=== PATIENT | female | born 1940 | race Caucasian/White ===

== ENCOUNTER 2017-02-12 11:15 | Outpatient (CLI) | payer MEDICARE, MEDICAID ==
--- NOTE | 2017-02-12 21:48 | Diagnostic Imaging Report ---
Indication: Cough Comparison: None 2 views of the chest obtained. No definite infiltrate or pulmonary vascular congestion identified. The heart is enlarged. The aorta is mildly enlarged consistent with atherosclerotic vascular disease. There is an old fracture of the left humeral neck. The bones are osteopenic. Impression: No acute disease
== END 2017-02-12 13:15 | disposition home or self-care (01) ==
LOC: RAD 11:15
DX: R05 Cough (principal); R06.02 Shortness of breath; M85.80 Other specified disorders of bone density and structure, unspecified site
CPT/HCPCS: 71046